=== PATIENT | female | born 1995 | race Caucasian/White ===

== ENCOUNTER 2017-06-16 20:24 | Emergency (ER) | payer OTHER ==
[~2017-06-16] VITALS: Ht 154.9 cm; Wt 163.6 kg
[2017-06-16 20:27] VITALS: TEMP 37.1; Ht 154.9 cm; Wt 163.6 kg
--- NOTE | 2017-06-16 21:11 | DIAGNOSTIC IMAGING REPORT ---
R FOOT MIN 3 VIEWS ROUTINE HISTORY: 21 years-old Female R foot pain acute right foot pain COMPARISON: None available TECHNIQUE: 3 views of the right foot FINDINGS: Moderate soft tissue prominence about the lower leg and foot. 6 mm corticated bone fragment is seen medial to the first cuneiform suggesting sequela of remote trauma. There is no acute fracture, dislocation or significant degenerative changes. No opaque foreign body. IMPRESSION: Moderate soft tissue prominence without fracture. The above report was generated using voice recognition software. It may contain grammatical, syntax or spelling errors. Electronically signed by: Moses West M.D. 06/16/2017 9:10 PM Dictated Date/Time: 06/16/2017 9:07 PM
[2017-06-16 21:48] VITALS: BP 158/94; PULSE 102; O2SAT 94
--- NOTE | 2017-06-16 22:43 | EMERGENCY ROOM VISIT NOTE ---
History First contact with patient: 20:48 Chief Complaint: FOOT PAIN Stated Complaint: SWOLLEN R FOOT,CANT PUT WAIT ON IT FROM FALL History of Present Illness The patient is a 21 year old female who presents to the Emergency Room with complaints of right foot pain. The patient reports that she missed a step and twisted her foot. She reports falling backward onto her back. She denies any other injuries from her fall. Injury happened at 2 PM this afternoon. She took ibuprofen 400 mg approximate 4 hours ago with minimal relief. Her pain is worsened to an 8 out of 10 with weightbearing. She denies any pain extending into the ankle or leg. She denies paresthesias or numbness of the right foot or toes. Review of Systems 10 system review was performed and was negative except for pertinent positives and negatives as indicated in history of present illness Past Medical/Surgical History Medical Problems: (1) No significant past medical history Surgical Problems: (1) No history of previous surgery Family History No pertinent family history Social History Smoking Status: Never Smoker Alcohol Use: none Drug Use: none Marital Status: single Housing Status: lives with family Occupation Status: student Current/Historical Medications No Active Prescriptions or Reported Meds Physical Exam Vital Signs Date Time Temp Pulse Resp B/P (MAP) Pulse Ox O2 Delivery O2 Flow Rate FiO2 06/16/17 21:48 102 18 158/94 94 06/16/17 20:27 37.1 117 18 151/83 96 Room Air Physical Exam CONSTITUTIONAL: Morbidly obese female, alert and oriented X 3 with positive affect. Patient does not appear in any acute distress. HEENT: Normocephalic, atraumatic. Pupils equal, round and reactive. NECK: Full active range of motion without discomfort. MUSCULOSKELETAL: Examination of the right foot does not show any obvious ecchymosis, edema or open wounds. She is generally tender over the lateral foot and ankle region. No tenderness to palpation of the deltoid ligament. Negative anterior drawer. Pedal pulses are intact. INTEGUMENTARY: No rash or other significant dermatologic conditions noted. NEUROLOGIC: Right foot and toes are sensory intact. Medical Decision & Procedures ER Provider Diagnostic Interpretation: My interpretation of right foot x-rays does not show any obvious fractures, dislocation or ankle mortise asymmetry. Radiologist report is as follows: R FOOT MIN 3 VIEWS ROUTINE HISTORY: 21 years-old Female R foot pain acute right foot pain COMPARISON: None available TECHNIQUE: 3 views of the right foot FINDINGS: Moderate soft tissue prominence about the lower leg and foot. 6 mm corticated bone fragment is seen medial to the first cuneiform suggesting sequela of remote trauma. There is no acute fracture, dislocation or significant degenerative changes. No opaque foreign body. IMPRESSION: Moderate soft tissue prominence without fracture. ED Course Patient history and physical exam were performed. Nurse's notes were reviewed. Vital signs were reviewed, showing an elevated blood pressure 151/83. The patient refused any analgesics on initial exam. X-rays of the right foot were normal. The patient was advised that her exam is most consistent with an ankle sprain. Unfortunately the patient exceeds the weight limit for crutches. She was encouraged to limit weightbearing on the foot and ankle until symptoms improve. Ice and elevation for swelling. Sergo wrap or ankle support for additional relief. She was encouraged alternate ibuprofen and Tylenol as needed for pain. I did encourage her to follow-up with her PCP if symptoms are not improving within the next week. The patient voiced understanding of all discharge instructions, was happy with plan of care, and rated her discomfort a 4 out of 10 at the conclusion of my exam. Medical Decision Medication Reconcilliation Current Medication List: was personally reviewed by me Blood Pressure Screening Patient's blood pressure: Elevated blood pressure Blood pressure disposition: Did not require urgent referral Impression Primary Impression: Ankle sprain Departure Information Dispostion Home / Self-Care Prescriptions No Active Prescriptions or Reported Meds Forms HOME CARE DOCUMENTATION FORM, IMPORTANT VISIT INFORMATION Patient Instructions My [employer] Additional Instructions Intermittently apply ice and elevate the ankle for swelling and pain. You may also apply an ankle support or Sergo wrap for additional relief. Ibuprofen 800 mg and/or Tylenol 1000 mg every 8 hours. You may also alternate these medications for more effective pain relief: Ibuprofen --4 HRS--> Tylenol --4 HRS--> ibuprofen --4 HRS--> Tylenol .... Follow-up with your family doctor or orthopedics if symptoms are not improving within the next 5-7 days. Problem Qualifiers Primary Impression: Ankle sprain Encounter type: initial encounter Involved ligament of ankle: unspecified ligament Laterality: right Qualified Codes: S93.401A - Sprain of unspecified ligament of right ankle, initial encounter
== END 2017-06-16 21:48 | disposition home or self-care (01) ==
LOC: C.EDB 20:26 → C.EDD 21:48
DX: S93.401A Sprain of unspecified ligament of right ankle, initial encounter (principal); X50.1XXA Overexertion from prolonged static or awkward postures, initial encounter; W00.1XXA Fall from stairs and steps due to ice and snow, initial encounter; E66.01 Morbid (severe) obesity due to excess calories; Z68.44 Body mass index [BMI] 60.0-69.9, adult